=== PATIENT | male | born 1990 | race African-American/Black ===

== ENCOUNTER 2016-11-08 11:51 | Emergency (ER) | payer MEDICAID ==
[~2016-11-08] VITALS: Ht 162.6 cm; Wt 70.0 kg
[2016-11-08] MEDS ORDERED: KETOROLAC 60MG/2ML VIAL IM ONE (12:30)
[2016-11-08 14:02] VITALS: BP 124/82
== END 2016-11-08 15:14 | disposition home or self-care (01) ==
LOC: ER 12:48
DX: S29.012A Strain of muscle and tendon of back wall of thorax, initial encounter (principal); F17.200 Nicotine dependence, unspecified, uncomplicated; X58.XXXA Exposure to other specified factors, initial encounter; Y93.89 Activity, other specified; Y92.89 Other specified places as the place of occurrence of the external cause; Y99.8 Other external cause status
CPT/HCPCS: 72070; 96372; 99284; J1885

== ENCOUNTER 2018-07-18 20:08 | Emergency (ER) | payer MEDICAID ==
[~2018-07-18] VITALS: Ht 170.2 cm; Wt 59.0 kg
[2018-07-18 21:45] LABS: CLARITY URINE CLEAR (CLEAR); COLOR URINE YELLOW (YELLOW); KETONES URINE NEGATIVE (NEGATIVE); LEUKOCYTE ESTERASE URINE NEGATIVE (NEGATIVE); NITRITE URINE NEGATIVE (NEGATIVE); OCCULT BLOOD URINE NEGATIVE (NEGATIVE); PH URINE 6.5 (4.5-8.0); PROTEIN URINE NEGATIVE (NEGATIVE); SPECIFIC GRAVITY URINE 1.006 (1.005-1.030); UROBILINOGEN URINE 0.2 E.U./dL (0.2-1.0)
[2018-07-18] MEDS ORDERED: LIDOCAINE HCL/PF 1% 10 MG/ML 5ML VIAL IJ NR (22:00)
[2018-07-18] MEDS ORDERED: AZITHROMYCIN 500 MG TABLET PO NR (22:00)
[2018-07-18] MEDS ORDERED: CEFTRIAXONE SODIUM 250 MG/VIAL IM NR (22:00)
[2018-07-18 22:50] VITALS: BP 117/81
== END 2018-07-18 22:50 | disposition home or self-care (01) ==
LOC: ER 20:58
DX: N34.2 Other urethritis (principal); N48.1 Balanitis; F17.200 Nicotine dependence, unspecified, uncomplicated
CPT/HCPCS: 81003; 96372; 99283; J0696; J3490

== ENCOUNTER 2021-07-19 19:05 | Emergency (ER) | payer MEDICAID ==
[~2021-07-19] VITALS: Ht 170.2 cm; Wt 60.4 kg
[2021-07-19 19:20] VITALS: BP 105/68
== END 2021-07-20 | disposition left against medical advice (07) ==
LOC: ER 19:05
DX: Z98.890 Other specified postprocedural states (principal)